=== PATIENT | female | born 1995 | race Caucasian/White ===

== ENCOUNTER → 2018-04-20 09:24 | Outpatient (REF) | payer MEDICAID, SELFPAY ==
[2018-04-20 18:36] LABS: Basophils % 0.4 % (0.1-2.0); Eosinophils # 0.3 K/mm3 (0.0-0.4); Eosinophils % 4.7 % (0.1-12.0); Hemoglobin 14.7 g/dL (12.2-16.2); Lymphocytes # 2.2 K/mm3 (0.7-4.5); Lymphocytes % 31.2 K/mm3 (10-50); Mean Corpuscular HGB Conc 31.9 g/dL (31.8-35.4); Mean Corpuscular Hemoglobin 27.1 pg (27.0-31.2); Mean Corpuscular Volume 85.2 fl (81-99); Monocytes # 0.4 K/mm3 (0.1-1.0); Monocytes % 5.4 % (1.7-9.3); Neutrophils # 4.1 K/mm3 (1.8-7.8); Neutrophils % 58.2 % (37.0-80.0); Platelet Count 253 K/mm3 (142-424); Red Cell Distribution Width 12.9 % (11.5-17.5); White Blood Count 7.1 K/mm3 (4.8-10.8)
[2018-04-20 19:00] LABS: Alanine Aminotransferase 24 U/L (12-78); Albumin/Globulin Ratio 1.3 (1.1-1.8); Alkaline Phosphatase 99 U/L (46-116); Anion Gap 12.9 mEq/L (5-15); Aspartate Amino Transferase 14 U/L (15-37); Bilirubin,Total 0.4 mg/dL (0.2-1.0); Blood Urea Nitrogen 8 mg/dL (7-18); Carbon Dioxide 27 mmol/L (21.0-32.0); Chloride 105 mmol/L (98-107); Cholesterol 185 mg/dL (140-200); Creatinine,Serum 0.89 mg/dL (0.55-1.02); Estimated Glomerular Filt Rate 79 ml/min (>60); GFR (African American) 96 ML/MIN (>60); Globulin 3.1 gm/dl (1.3-3.2); Glucose 87 mg/dL (74-106); HDL Cholesterol 31 mg/dL (29-89); LDL Cholesterol 134 mg/dL (0-130); Potassium 3.9 mmoL/L (3.5-5.1); Sodium 141 mmol/L (136-145); T4 (Thyroxine) 9.6 ug/dl (4.7-13.3); Thyroid Stimulating Hormone 1.78 uIU/ml (0.358-3.740); Total Protein,Serum 7.1 gm/dL (6.4-8.2); Triglycerides 101 mg/dL (30-200); VLDL Cholesterol 20 mg/dL (0-40)
[2018-04-20 19:18] LABS: Erythrocyte Sedimentation Rate 8 mm/hr (0-20)
[2018-04-24 07:36] LABS: Vitamin D 25 Hydroxy 24.7 ng/mL (30.0-100.0)
== END ==
LOC: LAB 09:24
PROVIDERS: Visit Provider Nurse Practitioner Family
DX: R51 Headache (principal); R53.83 Other fatigue
CPT/HCPCS: 80053; 80061; 82652; 84436; 84443; 85025; 85651

== ENCOUNTER 2022-04-27 17:27 | Emergency (ER) | payer MEDICAID, SELFPAY ==
--- NOTE | 2022-04-27 17:45 | HMH.EDGENADL ---
Discharge Plan Disposition Patient Disposition: Home, Self-Care Condition: Good Prescriptions Prescriptions: New Mucinex DM 30-600 mg tablet extended release 12 hr 1 tab PO DAILY PRN (Reason: cough) Qty: 30 0RF Referrals Follow up/Referrals: Darin Amos MD [Primary Care Provider] - See instructions Clinical Impressions Clinical Impression: Upper respiratory infection, viral Instructions Patient Instructions: Common Cold, Guaifenesin Discharge ED Provider: Tashi Maloney General Adult HPI General Stated complaint: RUNNY NOSE, COUGH Time Seen by Provider: 04/27/22 17:45 History of Present Illness HPI narrative: 27-year-old female, no significant past medical history presents with runny nose, cough for 2 days, has a daughter who had been sick with viral URI symptoms recently and a son who tested positive for rhinovirus. She denies fever, sputum production, nausea, vomiting, difficulty breathing, ear pain or pressure, red eyes or any other symptoms. She does not take anything at home for symptomatic relief. Related Data Previous Rx's Medication Instructions Recorded dextromethorphan-guaifenesin 30 1 tab PO DAILY PRN cough #30 tabs 04/27/22 mg-600 mg tablet extended hr (Mucinex DM) Allergies Allergy/AdvReac Type Severity Reaction Status Date / Time Sulfa (Sulfonamide Allergy Unknown Verified 02/24/22 14:39 Antibiotics) [SULFA (SULFONAMIDE ANTIBIOTICS)] PFSH PFS Social History Smoking Status: Former smoker second hand exposure: Yes alcohol intake: never substance use type: denies use current occupational status: employed Travel in the last 8 weeks: None ROS Obtained: Yes Systems reviewed as appropriate & no additional complaints except as documented Constitutional Constitutional: Reports system reviewed and no additional complaints, except as documented Eyes Eyes: Reports system reviewed and no additional complaints, except as documented ENT Ears, Nose, Mouth, and Throat: Reports as per HPI Cardiovascular Cardiovascular: Reports system reviewed and no additional complaints, except as documented Respiratory Respiratory: Reports as per HPI Gastrointestinal Gastrointestingal: Reports system reviewed and no additional complaints, except as documented Genitourinary Female Genitourinary: Reports system reviewed and no additional complaints, except as documented Musculoskeletal Musculoskeletal: Reports system reviewed and no additional complaints, except as documented Integumentary/Breasts Skin/Breast: Reports system reviewed and no additional complaints, except as documented Neurologic Neurologic: Reports system reviewed and no additional complaints, except as documented Endocrine Endocrine: Reports system reviewed and no additional complaints, except as documented Hematologic/Lymphatic Henatologic/Lymphatic: Reports system reviewed and no additional complaints, except as documented Allergic/Immunologic Allergic/Immunologic: Reports system reviewed and no additional complaints, except as documented Physical Exam General General appearance: alert and in no apparent distress Head Head exam: atraumatic, normocephalic and normal inspection Eye Eye exam: Present normal appearance, PERRL and EOMI ENT ENT exam: Present normal exam, normal oropharynx, mucous membranes moist, TM's normal bilaterally and normal external ear exam Neck Neck exam: Present normal inspection, full ROM and trachea midline; Absent meningismus or lymphadenopathy Chest Chest inspection: Present normal inspection and symmetric chest wall rise; Absent tenderness Respiratory Respiratory exam: Present normal lung sounds bilaterally; Absent respiratory distress Cardiovascular Cardiovascular exam: Present regular rate and normal rhythm; Absent JVD Abdominal Exam Abdominal exam: Present soft and normal bowel sounds; Absent distention, tend
[2022-04-27 17:57] VITALS: BP 136/84; PULSE 82; RESP 16; TEMP 36.8; O2SAT 99; BMI 21.6
[2022-04-27 18:28] LABS: Coronavirus 19, PCR Not Detected (NotDetected); Influenza A, PCR Not Detected (NotDetected); Influenza B, PCR Not Detected (NotDetected)
[2022-04-27 19:09] VITALS: BP 128/71; PULSE 79; RESP 18; TEMP 36.8; O2SAT 98
== END 2022-04-27 19:15 | disposition home or self-care (01) ==
LOC: UTC 17:30 → ER 17:34
PROVIDERS: Emergency Provider Emergency Medicine; PCP Emergency Medicine
DX: B34.8 Other viral infections of unspecified site (principal); J06.9 Acute upper respiratory infection, unspecified; Z20.822 Contact with and (suspected) exposure to COVID-19; Z79.899 Other long term (current) drug therapy; Z88.0 Allergy status to penicillin; Z87.891 Personal history of nicotine dependence
CPT/HCPCS: 99212; C9803; G0463; U0003; U0005

== ENCOUNTER 2023-04-03 08:00 | Outpatient (RCR) | payer BC, MEDICAID, SELFPAY ==
--- NOTE | 2023-03-22 08:55 | HMH.OTOPEV ---
OT Inpatient Evaluation Rehab OT Outpatient Eval Start: 03/22/23 08:40 Freq: Status: Active Protocol: Document 03/22/23 08:40 [facility] (Rec: 03/22/23 08:55 [facility] [id number][facility] E-signed By Gina Tate, OT Outpatient Therapy Subjective History Subjective History Pt is a 28 year old female who reports to therapy for initial evaluation to right wrist. Pt explains she has had numbness, tingling, and pain in right wrist, palm, and fingers since January. She started a job at [employer] in December that requires repetitive use of bilateral hands. Pt is right hand dominant. As of now, pt is off work until April 04 and she has an appointment with [facility] on March 30. Pt's AROM and strength is slightly declined. Pt's right hand commercial cleaner strength is declined as well. Pt will continue to be seen in order to address right wrist deficits. STG R hand commercial cleaner strength: 50 lbs LTG R hand commercial cleaner strength: 60 lbs New diagnosis of cancer in past 12 No months? Chief Complaint Pain,Stiff,Paresthesia, Weakness,Decreased Language Tutor Strength Symptom Type Ache,Throb,Dull,Numbness, Tingling Symptoms Relieved By Nothing Symptoms Aggravated By Physical Activity,Lifting Prior Functional Limitations None Current Functional Limitations Lifting,Housework,Dressing, Driving,Sleeping,Recreation Activity Symptom Description Constant but Variable Level of pain today (0-10) 2 Pain scale - at its best (0-10) 2 Pain scale - at its worst (0-10) 10 Wrist/Hand Eval Wrist Range of Motion Right Wrist Extension Active Range of Motion ( 68 degrees degrees) Wrist Flexion Active Range of Motion ( 65 degrees degrees) Wrist Radial Deviation Active Range of 30 degrees Motion (degrees) Wrist Ulnar Deviation Active Range of 35 degrees Motion (degrees)
== END 2023-04-03 08:05 | disposition home or self-care (01) ==
LOC: OT 08:00
PROVIDERS: PCP Emergency Medicine; Visit Provider Emergency Medicine
DX: M25.531 Pain in right wrist (principal)
CPT/HCPCS: 97010; 97014; 97035; 97110; 97140; 97166; 97530; G0283

== ENCOUNTER → 2023-04-04 16:53 | Outpatient (CLI) | payer BC, MEDICAID, SELFPAY ==
[2023-04-04 13:50] LABS: Chloride 106 mmol/L (98-107); Potassium 4.1 mmoL/L (3.5-5.1); Sodium 141 mmol/L (136-145)
[2023-04-04 13:52] LABS: Blood Urea Nitrogen 14 mg/dl (7-17)
[2023-04-04 13:53] LABS: Alanine Aminotransferase 20 U/L (12-78); Albumin Level 4.5 g/dl (3.5-5.0); Albumin/Globulin Ratio 1.5 (1.1-1.8); Alkaline Phosphatase 72 U/L (38-126); Anion Gap 15.1 mEq/L (5-15); Aspartate Amino Transferase 29 U/L (14-36); Bilirubin,Total 0.6 mg/dl (0.2-1.3); Carbon Dioxide 24 mmol/L (22.0-30.0); Cholesterol 215 mg/dl (140-200); Estimated Glomerular Filt Rate 75 ml/min (>60); GFR (African American) 91 ML/MIN (>60); Globulin 3.1 g/dL (1.3-3.2); Total Protein,Serum 7.6 g/dl (6.3-8.2); Triglycerides 74 mg/dl (30-150); VLDL Cholesterol 15 mg/dL (0-40)
[2023-04-04 13:54] LABS: Chol/HDL Ratio 4.5 (1-3.5); Glucose 99 mg/dl (74-100); HDL Cholesterol 48 mg/dl (40-60)
[2023-04-04 14:05] LABS: Direct LDL Cholesterol 118.93 mg/dL (100-129)
[2023-04-04 14:11] LABS: Basophils % 0.9 % (0.1-2.0); Eosinophils % 0.8 % (0.1-12.0); Hematocrit 46.9 % (37.0-47.0); Hemoglobin 14.4 g/dL (12.2-16.2); Lymphocytes # 1.9 K/mm3 (0.7-4.5); Lymphocytes % 39.5 % (10-50); Mean Corpuscular HGB Conc 30.8 g/dL (31.8-35.4); Mean Corpuscular Hemoglobin 24.2 pg (27.0-31.2); Mean Corpuscular Volume 78.7 fl (81-99); Mean Platelet Volume 8.7 fl (7.4-10.4); Monocytes # 0.4 K/mm3 (0.1-1.0); Monocytes % 8.2 % (1.7-9.3); Neutrophils # 2.4 K/mm3 (1.8-7.8); Neutrophils % 50.6 % (37.0-80.0); Platelet Count 260 K/mm3 (142-424); Red Blood Count 5.97 M/mm3 (4.20-5.40); Red Cell Distribution Width 16.2 % (11.5-17.5); T4 (Thyroxine) 8.5 ug/dl (5.53-11.0); White Blood Count 4.8 K/mm3 (4.8-10.8)
[2023-04-04 14:25] LABS: Thyroid Stimulating Hormone 2.34 uIU/mL (0.465-4.68)
== END ==
PROVIDERS: PCP Emergency Medicine; Visit Provider Emergency Medicine
DX: Z00.00 Encounter for general adult medical examination without abnormal findings (principal)
CPT/HCPCS: 80053; 80061; 82306; 84436; 84443; 85025